=== PATIENT | female | born 1975 | race Caucasian/White ===

== ENCOUNTER 2021-08-20 01:44 | Emergency (ER) | payer OTHER ==
[~2021-08-20] VITALS: Ht 167.6 cm; Wt 65.3 kg
[2021-08-20] MEDS ORDERED: LORAZEPAM INJ 2 MG/ML VIAL ONE (01:57)
[2021-08-20] MEDS ORDERED: LORAZEPAM INJ 2 MG/ML VIAL IM ONE (02:00)
--- NOTE | 2021-08-20 02:22 | NUR ---
Patient discharged to home in stable condition. Written and verbal after care instructions given. Patient verbalizes understanding of instruction. Pt wheeled out to family for a ride home.
[2021-08-20 02:29] VITALS: BP 101/73
== END 2021-08-20 02:32 | disposition home or self-care (01) ==
LOC: ER 01:50
DX: F41.0 Panic disorder [episodic paroxysmal anxiety] (principal); F32.9 Major depressive disorder, single episode, unspecified; Z88.0 Allergy status to penicillin; Z88.6 Allergy status to analgesic agent
CPT/HCPCS: 96372; 99283; J2060